=== PATIENT | female | born 1980 | race Two or more races ===

== ENCOUNTER → 2016-12-05 | Outpatient (CLI) | payer OTHER ==
[2016-12-05 15:13] LABS: HEMOGLOBIN 12.5 g/dL (11.7-16.4)
== END | disposition home or self-care (01) ==
LOC: LAB 13:50
PROVIDERS: ATTEND Student in an Organized Health Care Education/Training Program
DX: O09.92 Supervision of high risk pregnancy, unspecified, second trimester (principal); Z3A.00 Weeks of gestation of pregnancy not specified
CPT/HCPCS: 36415; 82950; 85025

== ENCOUNTER 2017-03-07 01:15 | Outpatient (CLI) | payer OTHER ==
[~2017-03-07] VITALS: Ht 160 cm; Wt 80.0 kg
== END 2017-03-07 04:25 | disposition home or self-care (01) ==
LOC: LDOP 01:15
PROVIDERS: ATTEND Student in an Organized Health Care Education/Training Program
DX: O09.523 Supervision of elderly multigravida, third trimester (principal); O26.893 Other specified pregnancy related conditions, third trimester; R10.9 Unspecified abdominal pain; Z3A.38 38 weeks gestation of pregnancy
CPT/HCPCS: 59025; 99211; G0463

== ENCOUNTER 2017-03-15 09:58 | Inpatient (IN) | payer OTHER ==
[~2017-03-15] VITALS: Ht 160 cm; Wt 82.2 kg
[2017-03-22] MEDS ORDERED: OXYTOCIN 30U/ 0.9% NaCL 500ML 500 ML IV ONE ×2 (22:19→22:33)
[2017-03-22] MEDS ORDERED: FENTANYL PF 100 MCG/2ML IV PRN (22:30)
[2017-03-22] MEDS ORDERED: ONDANSETRON 2MG/ML, 2ML IVPush PRN (22:30)
[2017-03-22 22:31] VITALS: BP 103/63
[2017-03-22] MEDS ORDERED: OXYTOCIN 30U/ 0.9% NaCL 500ML 500 ML IV PRN (22:33)
[2017-03-22] MEDS: D5%-LACTATED RINGERS 1,000 ML IV SCH (22:33)
[2017-03-22] MEDS: LACTATED RINGERS 1,000 ML IV SCH ×2 (22:33→22:59)
[2017-03-22] MEDS ORDERED: PNV1TAB.5 PO (22:40)
[2017-03-22] MEDS ORDERED: OXYTOCIN 30U/ 0.9% NaCL 500ML 500 ML ONE (22:47)
[2017-03-22] MEDS ORDERED: ALUMINUM/MAG/SIMETHICONE 30 ML UDC PO PRN (23:00)
[2017-03-22] MEDS ORDERED: CALCIUM CARBONATE 500 MG TAB.CHEW PO PRN (23:00)
[2017-03-22] MEDS ORDERED: TERBUTALINE 1 MG/ML, 1ML SQ PRN (23:00)
[2017-03-22] MEDS ORDERED: TERBUTALINE 1 MG/ML, 1ML IVPush PRN ×2 (23:00)
[2017-03-22] MEDS ORDERED: PENICILLIN GK 5,000,000 UNITS in DEXTROSE 5% 100 ML IVPB ONE (23:00)
[2017-03-22] MEDS ORDERED: NEWBORN KIT ONE (23:34)
[2017-03-23] MEDS: PENICILLIN GK 2,500,000 UNITS in DEXTROSE 5% 100 ML IVPB SCH ×4 (03:00→11:00)
[2017-03-23] MEDS ORDERED: LIDOCAINE 1%, 20ML ONE (03:05)
[2017-03-23] MEDS ORDERED: MISOPROSTOL 200 MCG TABLET ONE (03:06)
[2017-03-23] MEDS ORDERED: FENTANYL PF 100 MCG/2ML ONE ×2 (05:06→06:03)
[2017-03-23] MEDS: FENTANYL PF 100 MCG/2ML IVPush PRN ×2 (05:10→06:05)
[2017-03-23] MEDS: LACTATED RINGERS 1,000 ML IV SCH ×2 (06:19→06:33)
[2017-03-23] MEDS: D5%-LACTATED RINGERS 1,000 ML IV SCH (06:33)
[2017-03-23] MEDS ORDERED: HYDROcodone/APAP 5/325 TABLET PO PRN (07:30)
[2017-03-23] MEDS ORDERED: ACETAMINOPHEN 325 MG TABLET PO PRN (07:30)
[2017-03-23] MEDS ORDERED: METHYLERGONOVINE 0.2 MG/ML IM PRN (07:30)
[2017-03-23] MEDS ORDERED: MISOPROSTOL 200 MCG TABLET PR PRN (07:30)
[2017-03-23] MEDS ORDERED: ONDANSETRON 2MG/ML, 2ML IV PRN (07:30)
[2017-03-23] MEDS ORDERED: DOCUSATE 100 MG CAPSULE PO PRN (07:30)
[2017-03-23] MEDS ORDERED: IBUPROFEN 600 MG TABLET ONE (08:38)
[2017-03-23] MEDS ORDERED: OXYTOCIN 30U/ 0.9% NaCL 500ML 500 ML ONE (08:39)
[2017-03-23] MEDS: IBUPROFEN 600 MG TABLET PO PRN ×2 (08:49→21:45)
[2017-03-23] MEDS: OXYTOCIN 30U/ 0.9% NaCL 500ML 500 ML IV SCH ×2 (08:50→17:23)
[2017-03-23] MEDS: PRENATAL VIT/IRON/FA 1 EACH TABLET PO SCH (09:00)
[2017-03-23 12:21] VITALS: BP 118/66
[2017-03-23 16:00] VITALS: BP 112/68
[2017-03-23 20:40] VITALS: BP 127/75
[2017-03-23] MEDS: HYDROcodone/APAP 5/325 TABLET PO PRN (21:45)
[2017-03-23 23:53] VITALS: BP 109/61
[2017-03-24 04:00] VITALS: BP 118/64
[2017-03-24 07:05] VITALS: BP 102/55
[2017-03-24] MEDS: PRENATAL VIT/IRON/FA 1 EACH TABLET PO SCH (11:03)
[2017-03-24] MEDS: IBUPROFEN 600 MG TABLET PO PRN ×2 (11:04→23:01)
[2017-03-24 19:40] VITALS: BP 118/78
[2017-03-24] MEDS: HYDROcodone/APAP 5/325 TABLET PO PRN (23:00)
[2017-03-25 07:10] VITALS: BP 118/76
[2017-03-25] MEDS ORDERED: HYDR-3240 PO (11:40)
[2017-03-25] MEDS ORDERED: IBUP-1222 PO (11:43)
[2017-03-25] MEDS ORDERED: DOCU-30 PO (11:43)
== END 2017-03-25 16:40 | disposition home or self-care (01) | DRG 775 ==
LOC: LDIP 03-22 22:13 → 2NW 03-23 09:07
PROVIDERS: ADMIT Student in an Organized Health Care Education/Training Program; ATTEND Student in an Organized Health Care Education/Training Program
PROC: 10E0XZZ Delivery of Products of Conception, External Approach (ICD-10-PCS; principal; 2017-03-23)
PROC: 0KQM0ZZ Repair Perineum Muscle, Open Approach (ICD-10-PCS; 2017-03-23)
DX: O48.0 Post-term pregnancy (principal); O99.824 Streptococcus B carrier state complicating childbirth; O70.1 Second degree perineal laceration during delivery; Z37.0 Single live birth; Z3A.41 41 weeks gestation of pregnancy
CPT/HCPCS: 36415; 85025; 86850; 86900; J2540; J3010; J2590; J7120